=== PATIENT | female | born 1935 | race Caucasian/White ===

== ENCOUNTER → 2016-08-12 09:17 | Outpatient (CLI) | payer MEDICARE, BC | END | disposition home or self-care (01) | LOC: D.NM 08-09 09:30 | DX: M54.5 Low back pain (principal) ==

== ENCOUNTER 2017-01-22 16:34 | Observation (INO) | payer MEDICARE, BC ==
--- NOTE | ~2017-01-22 | HEMODYNAMI ---
PATIENT:SOLOMON HINOJOSA MEDICAL RECORD: [id number] : 31 LOCATION:[address] [id number] ADMISSION DATE: 01/22/17 Generatedon:01/23/201713:08 Patient name: SOLOMON HINOJOSA Patient #: [id number] SSN: : Date of study: 01/23/2017 Page: Of Hemodynamic Procedure Report Patient Data Patient Demographics Procedure consent was obtained First Name: SOLOMON Gender: Female Last Name: ASHISH : 1935 [facility] Initial: DERIC Age: 81 year(s) Patient #: [id number] Race: Unknown Additional ID: [id number] Contact details Address: [address] [place] [address] [address] State: [place] City: [place] Zip code: [address] Admission Admission Data Admission Date: 01/22/2017 Admission Time: 18:38 Room #: D.2123 Lab Results Lab Result Date: 01/23/2017 Lab Result Time: 0:00 Biochemistry Name Units Result Min Max BUN mg/dl 9 --(*---)-- 7 18 Creatinine mg/dl 0.5 -*(----)-- 0.6 1.3 CBC Name Units Result Min Max Hemoglobin g/dl 12.6 -*(----)-- 13.5 17.5 Procedure Procedure Types Cath Procedure Diagnostic Procedure [facility] w/Coronaries PCI Procedure Coronary Stent Initial Miscellaneous Procedures Moderate Sedation up to 15 minutes Procedure Description Procedure Date Procedure Date: 01/23/2017 Procedure Start Time: 12:49 Procedure End Time: 13:06 Procedure Staff Name Function Demetrius Durham MD Performing Physician Ananya Villarreal RT Scrub Joaquin Cortez RN Nurse Randall Jimenez RT Monitor Procedure Data Cath Procedure Fluoroscopy Diagnostic fluoroscopy Total fluoroscopy Time: 2.9 time: 2.9 min min Diagnostic fluoroscopy Total fluoroscopy dose: 246 dose: 246 mGy mGy Contrast Material Contrast Material Type Amount (ml) Isovue 300 74 Entry Location Entry Primary Successful Side Size Upsize Upsize Entry Closure Succes sful Closure Location (Fr) 1 (Fr) 2 (Fr) Remarks Device Remarks Femoral Right 5 Fr 6 Fr Exoseal artery Short Estimated blood loss: 10 ml Diagnostic catheters Device Type Used For End Catheter Placement Cordis 5Fr Pigtail Procedure Catheter (MP) Cordis 5Fr JL 4.0 Procedure Catheter (MP) Cordis 5Fr 3DRC Catheter Procedure (MP) Procedure Complications No complications Procedure Medications Medication Administration Route Dosage 0.9% NaCl I.V. 100 ml/hr Oxygen NC 2 l/min Heparin Flush Bag added to field 2 bags (1000units/500ml NS) Lidocaine 2% added to field 20 Versed I.V. 0.5 mg Fentanyl I.V. 25 mcg Heparin Bolus I.V. 4000 units Integrilin (Bolus I.V. 5.6 ml 2mg/ml) Integrilin (Bolus wasted 4.4 ml 2mg/ml) Hemodynamics Rest HGB: 12.6 (g/dl) Heart Rate: 70 (bpm) Snapshots Pre Cath Intra NCS Post Cath Vital Signs Time Heart Resp SPO2 etCO2 NIBP Rhythm Pain Sedation Rate (ipm) (%) (mmHg) (mmHg) Status Level (bpm) 12:32:13 70 18 98 0 124/65(98) NSR 0 (11) 10(A) , No pain 12:36:53 70 16 97 0 124/64(98) NSR 0 (11) 10(A) , No pain 12:41:34 70 14 96 0 122/64(94) NSR 0 (11) 10(A) , No pain 12:46:17 70 14 96 0 127/64(99) NSR 0 (11) 10(A) , No pain 12:50:59 70 16 97 0 121/61(94) NSR 0 (11) 9(A) , No pain 12:55:42 75 15 97 0 124/60(90) NSR 0 (11) 9(A) , No pain 13:00:23 73 19 95 0 119/58(91) NSR 0 (11) 10(A) , No pain 13:05:03 72 9 97 0 120/57(95) NSR 0 (11) 10(A) , No pain Medications Time Medication Route Dose Verified Delivered Reason Notes Effectiveness by by 12:28:30 0.9% NaCl I.V. 100 Joaquin Joaquin Per physician ml/hr iDego Cortez RN RN 12:28:49 Oxygen NC 2 Joaquin Joaquin Per physician l/min Diego Cortez RN RN 12:29:07 Heparin Flush added 2 Joaquin Joaquin used for Bag to bags Diego Cortez procedure (1000units/500ml field RN RN NS) 12:29:23 Lidocaine 2% added 20ml Joaquin Joaquin for local to vial Diego Cortez anesthetic field RN RN 12:45:16 Versed I.V. 0.5 Joaquin Joaquin for sedation mg Diego Cortez RN RN 12:50:43 Fentanyl I.V. 25 Joaquin Joaquin for sedation mcg Diego Cortez RN RN 12:58:21 Heparin Bolus I.V. 4000 Joaquin Joaquin for units Diego Cortez anticoagulation RN RN 12:58:48 Integrilin I.V. 5.6 Joaquin Joaquin for (Bolus 2mg/ml) ml Diego Cortez antiplatelet RN RN therapy 13:02:13 Integrilin wasted 4.4 Joaquin Joaquin to sharp's (Bolus 2mg/ml) ml Diego Cortez RN materials management manager Log Time Note 12:03:40 Randall Jimenez RT(R) sent for patient. Start room use. 12:03:42 Time tracking: Regular hours 12:03:47 Plan of Care:Hemodynamics will remain stable., Cardiac rhythm will remain stable., Comfort level will be maintained., Respiratory function will remain adequate., Patient/ family verbilizes understanding of procedure., Procedure tolerated without complication., Recovers from procedure without complications.. 12:04:54 H&P Date Dictated: 01/22/2017 Within 30 days and on chart.. 12:05:39 Lab Result : BUN 9 mg/dl 12:05:39 Lab Result : Hemoglobin 12.6 g/dl 12:05:39 Lab Result : Creatinine 0.5 mg/dl 12:05:44 Lab results completed and on chart. 12:19:26 Patient received from Med II to CCL 1 Alert and oriented. Tansferred to table in Supine position. 12:19:28 Warm blankets applied, and albino hugger turned on for patient comfort. 12:19:28 Correct patient and procedure confirmed by team. 12:19:30 Signed procedure consent form obtained from patient. 12:19:32 ECG and BP/O2 sat monitors applied to patient. 12:28:30 0.9% NaCl 100 ml/hr I.V. was administered by Joaquin Cortez RN; Per physician; 12:28:49 Oxygen 2 l/min NC was administered by Joaquin Cortez RN; Per physician; 12:29:07 Heparin Flush Bag (1000units/500ml NS) 2 bags added to field was administered by Joaquin Cortez RN; used for procedure; 12::23 Lidocaine 2% 20ml vial added to field was administered by Joaquin Cortez RN; for local anesthetic; 12:31:22 Vital chart was started 12:34:03 Baseline sample Acquired. 12:34:09 Rhythm: sinus rhythm 12:34:10 Full Disclosure recording started 12:34:11 Pre-procedure instructions explained to patient. 12:34:11 Pre-op teaching completed and patient verbalized understanding. 12:34:16 Family in patients room. 12:34:18 Patient NPO since Midnight. 12:34:19 Is the patient allergic to Iodine/contrast media? No. 12:34:21 Is patient on blood thinner?No 12:34:24 Patient diabetic? No. 12:34:26 Patient not . Patient is over age 55. 12:34:28 Previous problem with sedation/anesthesia? No ? 12:34:29 Snore? Yes 12:34:30 Sleep apnea? No 12:34:31 Deviated septum? No 12:34:32 Opens mouth fully? Yes 12:34:33 Sticks out tongue? Yes 12:34:49 Airway obstruction? No ? 12:34:54 Dentures? Yes OUT 12:34:58 Pre procedure: right dorsailis pedis pulse 1+ Palpable, but thready & weak; easily obliterated 12:35:02 Patient pain scale 0/10 ?. 12:35:08 IV patent on arrival in right wrist with 0.9% NaCl at [facility]. 12:35:25 Right groin area was prepped with chlora-prep and draped in sterile fashion 12:35:26 Alarms reviewed by R. N. 12:35:26 Sharps counted by scrub and verified by R.N. 12:36:56 Use device set Femoral Dx 12:36:59 Tegaderm 4 x 4 opened to sterile field. 12:37:00 Acist Hand Control opened to sterile field. 12:37:01 Acist Manifold opened to sterile field. 12:37:02 Acist Syringe opened to sterile field. 12:37:02 Bag Decanter opened to sterile field. 12:37:02 Medline Cath Pack opened to sterile field. 12:37:03 Terumo 5Fr [place] Sheath opened to sterile field. 12:37:03 St Madi 260cm J .035 wire opened to sterile field. 12:37:04 Diagnostic Infinity 5Fr Multipack catheter opened to sterile field. 12:37:23 Cook 18G 7cm Percutaneous Entry needle opened to sterile field. 12:40:24 Zero performed for pressure channel P1 12:41:02 Zero performed for pressure channel P1 12:44:21 --------ALL STOP TIME OUT------ 12:44:22 Final Timeout: patient, procedure, and site verified with staff and physician. All members of the team are in agreement. 12:44:25 Right groin site verified by team. 12:44:28 Physical assessment completed. ASA score P 2 - A patient with mild systemic disease as per Demetrius Durham MD. 12:44:32 Sedation plan: IV Moderate Sedation Versed, Fentanyl 12:45:16 Versed 0.5 mg I.V. was administered by Joaquin Cortez RN; for sedation; 12:49:38 Procedure started. 12:49:41 Local anesthetic to right femoral artery with Lidocaine 2% by Demetrius Durham MD.INITIAL ACCESS ONLY 12:50:40 A 5 Fr sheath was inserted into the Right Femoral artery 12:50:43 Fentanyl 25 mcg I.V. was administered by Joaquin Cortez RN; for sedation; 12:51:08 A Cordis 5Fr Pigtail Catheter (MP) was advanced over the wire and used for Procedure. 12:51:44 LV angiography performed. 12:51:45 LV gram done using BARBOUR 12:51:51 EF : 60 % 12:51:54 Injector settings: Ml/sec: 10, Volume: 20, 12:51:57 Catheter removed. 12:52:06 A Cordis 5Fr JL 4.0 Catheter (MP) was advanced over the wire and used for Procedure. 12:52:53 LCA angiography performed. 12:53:34 Catheter exchanged over wire. 12:53:41 A Cordis 5Fr 3DRC Catheter (MP) was advanced over the wire and used for Procedure. 12:54:03 Terumo 6Fr [place] Sheath opened to sterile field. 12:54:04 Merit BasixCompak Inflation Kit opened to sterile field. 12:54:04 [place] Sci PT Graphix J 300cm 0.014 guide wire opened to sterile field. 12:54:33 RCA angiography performed. 12:54:36 Catheter exchanged over wire. 12:54:45 Cordis 6FR XB 3.5 SH guide catheter opened to sterile field. 12:54:59 Sheath upsized to a 6 Fr Short. 12:55:09 Study PCI Site: [place] LMCA has 80% stenosis. 12:55:12 ACC Pre-intervention JEFRY Flow is 3. 12:55:19 6 Fr XB 3.5 SH guide catheter was inserted over the wire 12:58:21 Heparin Bolus 4000 units I.V. was administered by Joaquin Cortez RN; for anticoagulation; 12:58:22 Whisper wire advanced. 12:58:38 Wire advanced across lesion. 12:58:48 Integrilin (Bolus 2mg/ml) 5.6 ml I.V. was administered by Joaquin Cortez RN; for antiplatelet therapy; 12:59:43 Inflation Number: 1 A Christian OTW 3.0 x 08 stent was prepped and advanced across the LMCA. The stent was deployed at 17 GIOVANNY for 0:10 (min:sec). 12:59:59 ACC Post-intervention JEFRY Flow is 3. 13:00:01 Stent catheter was removed intact over wire. 13:00:01 Wire removed. 13:00:02 Guide catheter removed. 13:00:21 Cordis 6Fr Exoseal opened to sterile field. 13:00:34 Sheath removed intact; hemostasis achieved with Exoseal to the Right Femoral artery. 13:00:36 Procedure ended.(Physican Out) 13:01:46 Fluoroscopy time 02.90 minutes. 13:01:49 Flurop Dose total: 246 13:01:49 Fluoroscopy dose: 246 mGy 13:01:53 Contrast amount:Isovue 300 74ml. 13:01:55 Sharps counted by scrub and verified by R.N. 13:01:56 Insertion/operative site no bleeding no hematoma. 13:01:58 Post-op/insertion site Right Femoral artery dressed using a 4 x 4 and Tegaderm. 13:02:00 Post Procedure Pulses reassessed and unchanged 13:02:02 Post-procedure physical assessment completed. ASA score P 2 - A patient with mild systemic disease as per Demetrius Durham MD. 13:02:04 Post procedure rhythm: unchanged. 13:02:08 Estimated blood loss: 10 ml 13:02:09 Post procedure instruction explained to patient.Patient verbalizes understanding. 13:02:10 Patient needs reinforcement of post procedure teaching. 13:02:13 Integrilin (Bolus 2mg/ml) 4.4 ml wasted was administered by Joaquin Cortez RN; to tram'perlita; 13:02:18 Procedure type changed to Cath procedure, Diagnostic procedure, LHC, LHC w/Coronaries, PCI procedure, Coronary Stent Initial, Miscellaneous Procedures, Moderate Sedation up to 15 minutes 13:02:22 Procedure Complication : No complications 13:03:22 Procedure and supply charges have been captured, reviewed, submitted and are correct. 13:06:37 Vital chart was stopped 13:06:38 See physician's report for complete and final results. 13:06:42 Report given to PCU. 13:06:46 Patient transfered to PCU with Bed. 13:06:49 Procedure ended. 13:06:49 Full Disclosure recording stopped 13:07:53 End room use (Document Last) Intervention Summary Intervention Notes Time ActionType Lesion and Equipment Action# Pressure Duration Attributes Used 12:59:43 Place stent LMCA Christian OTW 1 17 00:10 3.0 x 08 stent Device Usage Item Name Manufacture Quantity Catalog Number Hospital Part Current Min imal Lot# / Charge Number Stock Stock Serial# Code Tegaderm 4 x 3M 1 [id number] 198073 475893 378867 5 4 Acist Hand Acist 1 61059 609856 424452 854223 5 Control Medical Systems Inc Acist Acist 1 96201 645042 274458 799918 5 Manifold Medical Systems Inc Acist Acist 1 79106 564110 804752 065771 20 Syringe Medical Systems Inc Bag Decanter Microtek 1 2001S 787247 38407 149412 5 Medical Inc. Medline Cath Cardinal 1 [id number] 760103 84257 180601 5 Pack Health Terumo 5Fr Terumo 1 [id number] 977723 040039 803057 [address] St Madi 1 227956 020124 937623 032263 30 260cm J .035 wire Diagnostic Cardinal 1 [id number] 537053 11606 259557 30 Infinity 5Fr Health Multipack catheter Cook 18G 7cm [facility] 1 [id number] 596089 94379 928035 5 Percutaneous Entry needle Cordis 5Fr Cardinal 1 796338 5 Pigtail Health Catheter (MP) Cordis 5Fr Cardinal 1 889249 5 JL 4.0 Health Catheter (MP) Cordis 5Fr Cardinal 1 728026 5 3DRC Health Catheter (MP) Terumo 6Fr Terumo 1 BKS293 746227 517409 647851 40 [place] Sheath [facility] 1 TC5527 948942 795957 587220 15 BasixCompak Medical Inflation Kit [place] Sci [place] 1 [id number] 928828 149606 807106 5 PT Graphix J Scientific 300cm 0.014 guide wire Cordis 6FR Cardinal 1 [id number] 955017 552932 837690 2 XB 3.5 SH Health guide catheter [place] OTW 3.0 Medtronic 1 [id number] 049656 0365745 318865 5 [id number] x 08 stent Cordis 6Fr Cardinal 1 EX600 397207 032435 197599 10 [facility] Health Signature Audit Jeddo Stage Time Signature Unsigned Intra-Procedure 01/23/2017 Randall Jimenez 1:08:16 PM RT(R) Signatures Monitor : Randall Jimenez RT Signature : Date : Time : [facility] [address] [place], [place] [address]
[2017-01-22 17:08] LABS: BASOPHILS 0.3 % (0-2); EOSINOPHILS 0.9 % (0-7); HEMATOCRIT 36.4 % (36.0-48.0); HEMOGLOBIN 12.6 g/dL (12-16); IMMATURE GRANULOCYTES 0.3 % (0-5); LYMPHOCYTES 10.9 % (15-50); MCH 31.4 pg (26.0-34.0); MCHC 34.6 g/dL (31.0-37.0); MCV 90.8 fL (80.0-100.0); MEAN PLATELET VOLUME 9.8 fL (7.4-10.4); MONOCYTES 13.6 % (2-11); RBC 4.01 10x6/uL (4.00-5.40); RDW 12.1 % (11.5-14.5)
[2017-01-22 17:09] LABS: PLATELET COUNT 196 10x3/uL (130-400)
[2017-01-22 17:32] LABS: ALKALINE PHOSPHATASE 50 U/L (46-116); ALT (SGPT) 15 U/L (10-68); BILIRUBIN - TOTAL 0.19 mg/dL (0.2-1.3); CALC OSMOLALITY 269 mosm/kg (275-300); CALCIUM 9.2 mg/dL (8.5-10.1); CARBON DIOXIDE 27.1 mmol/L (21.0-32.0); CHLORIDE - SERUM 99 mmol/L (98-107); CREATININE - SERUM 0.5 mg/dL (0.6-1.3); GLUCOSE 108 mg/dL (74-106); POTASSIUM - SERUM 3.5 mmol/L (3.5-5.1); PROTEIN - SERUM 6.7 g/dL (6.4-8.2); SODIUM 135 mmol/L (136-145); UREA NITROGEN 9 mg/dL (7-18); eGFR NON AFRICAN AMERICAN > 90 mL/min (90-120)
[2017-01-22 17:43] LABS: CHOLESTEROL, TOTAL 155 mg/dL (0-200); CKMB 0.2 U/L (0.0-3.6); CREATINE KINASE 36 UL (21-215); HDL CHOLESTEROL 51 mg/dL (32-96); LDL CHOLESTEROL 91 mg/dL (0-100); LDL-HDL RATIO 1.8 ratio (1.5-3.5); TRIGLYCERIDE 66 mg/dL (30-200)
[2017-01-22 17:44] LABS: TROPONIN-I < 0.017 ng/mL (0.000-0.060)
[2017-01-22 18:40] LABS: CREATINE KINASE 31 UL (21-215)
[2017-01-22 18:54] LABS: TROPONIN-I < 0.017 ng/mL (0.000-0.060)
--- NOTE | 2017-01-22 19:23 | NUR ---
ARRIVED TO FLOOR VIA WHEELCHAIR ACCOMPANIED BY HOSPITAL STAFF AND FAMILY. ORIENTED TO FLOOR AND PLACED ON TELEMETRY. CALL LIGHT IN REACH. PLAN OF CARE DISCUSSED. WILL CONTINUE TO MONITOR. SEE NURSE ASSESSMENT.
[2017-01-22 20:00] VITALS: BP 134/62
[2017-01-22] MEDS ORDERED: UNISOM SLEEP AI25 MG PO (21:16)
--- NOTE | 2017-01-22 21:18 | NUR ---
DR. TIRADO PAGED FOR SLEEP AID, AWAITING CALL BACK.
[2017-01-22] MEDS ORDERED: NORVASC10 MG PO (21:19)
[2017-01-22] MEDS ORDERED: TOPROL XL25 MG PO (21:19)
[2017-01-22] MEDS ORDERED: FLUTICASONE PRO16 GM NASAL (21:20)
[2017-01-22] MEDS ORDERED: CELEXA40 MG PO (21:20)
[2017-01-22] MEDS ORDERED: HYDRALAZINE HCL25 MG PO (21:21)
[2017-01-22] MEDS ORDERED: NEXIUM40 MG PO (21:21)
[2017-01-22 23:09] VITALS: BP 134/62; BMI 25.1
[2017-01-23] VITALS: BP 173/65
--- NOTE | 2017-01-23 00:30 | NUR ---
LAB IN ROOM TO OBTAIN CARDIAC ENZYMES
--- NOTE | 2017-01-23 01:03 | NUR ---
MORPHINE 4MG IVP FOR CHEST PAIN RADIATING INTO LEFT ARM AND SHOULDER. DESCRIBES PAIN A THROBBING SENSATION, 10:10. CALL LIGHT IN REACH. WILL CONTINUE TO MONITOR.
[2017-01-23 01:15] LABS: CKMB 0.1 U/L (0.0-3.6); CREATINE KINASE 34 UL (21-215); TROPONIN-I < 0.017 ng/mL (0.000-0.060)
[2017-01-23 04:00] VITALS: BP 145/67
[2017-01-23 07:21] LABS: CKMB 0.2 U/L (0.0-3.6); CREATINE KINASE 32 UL (21-215)
[2017-01-23 07:25] LABS: TROPONIN-I < 0.017 ng/mL (0.000-0.060)
--- NOTE | 2017-01-23 07:37 | NUR ---
PT SITTING UP IN BED DENIES NEEDS AT THIS TIME. WILL CONT TO MONITOR
[2017-01-23 08:34] VITALS: BP 163/78
[2017-01-23 12:16] LABS: BASOPHILS 0.3 % (0-2); CALC OSMOLALITY 267 mosm/kg (275-300); CALCIUM 9.1 mg/dL (8.5-10.1); CARBON DIOXIDE 25.2 mmol/L (21.0-32.0); CHLORIDE - SERUM 99 mmol/L (98-107); CREATININE - SERUM 0.5 mg/dL (0.6-1.3); EOSINOPHILS 0.6 % (0-7); GLUCOSE 106 mg/dL (74-106); HEMOGLOBIN 12.1 g/dL (12-16); IMMATURE GRANULOCYTES 0.1 % (0-5); LYMPHOCYTES 11.7 % (15-50); MCH 31.1 pg (26.0-34.0); MCHC 33.6 g/dL (31.0-37.0); MCV 92.5 fL (80.0-100.0); MEAN PLATELET VOLUME 10.5 fL (7.4-10.4); MONOCYTES 15.8 % (2-11); NEUTROPHILS 71.5 % (40-80); PLATELET COUNT 198 10x3/uL (130-400); POTASSIUM - SERUM 3.2 mmol/L (3.5-5.1); RBC 3.89 10x6/uL (4.00-5.40); RDW 12.3 % (11.5-14.5); SODIUM 135 mmol/L (136-145); UREA NITROGEN 8 mg/dL (7-18); eGFR NON AFRICAN AMERICAN > 90 mL/min (90-120)
[2017-01-23 12:23] VITALS: BP 136/72
[2017-01-23 12:49] VITALS: BMI 25.1
--- NOTE | 2017-01-23 13:13 | NUR ---
RECEIVED REPORT FROM CINDER BLOCK MAKER, PT RECEIVED ONE STENT IN PROCEDURE. DR COLON IS OK WITH PT GOING HOME AT 1730. CALLED DR EWING OFFICE TO SEE IF HE HAD A CHANGE TO LOOK AT HER SHOULDER XRAY AND IF IT WOULD BE OK FOR HER TO GO HOME TODAY... THEY DIDNT ANSWER, LEFT MESSAGE FOR THEM TO CALL ME BACK
--- NOTE | 2017-01-23 13:24 | NUR ---
PT BACK TO ROOM VS ARE WNL. R GROIN SITE IS WNL. PT STILL LETHARGIC BUT AWAKE AND ALERT. DAUGHTER AT BEDSIDE WILL CONT TO MONITOR
--- NOTE | 2017-01-23 14:21 | NUR ---
PT STILL LAYING FLAT VS ARE STILL UNCHANGED. NO S/S DISTRESS R GROIN SITE IS STILL WNL. WILL CONT TO MONITOR
[2017-01-23] MEDS ORDERED: PLAVIX75 MG PO (14:54)
--- NOTE | 2017-01-23 16:45 | NUR ---
PT LAYING FLAT IN BED R GROIN SITE IS STILL WNL. VS ARE WNL. PT STILL COMPLAINING OF LEFT SHOULDER PAIN. DR LAM SAID TO DC PT HOME. DID NOT PRESCRIBE PT ANY PAIN MEDICATION TO TAKE AT HOME FOR SHOULDER PAIN LIKE PT REQUESTED. TRIED CALLING OFFICE MULTIPLE TIMES, NO ANSWER. PT DAUGHTER WENT ACROSS THE STREET TO OFFICE TO ASK FOR SOME MEDICATION FOR HER MOTHER.
--- NOTE | 2017-01-23 18:23 | NUR ---
PT WAS WHEELED OUT TO FRONT ENTRACE.
--- NOTE | 2017-01-24 16:42 | OP ---
PATIENT NAME: SOLOMON HINOJOSA MEDICAL RECORD: [id number] :31 LOCATION:D.M2 D.2123 ADMISSION DATE:01/22/17 SURGEON: SUNITHA COLON MD DATE OF OPERATION: 01/23/2017 PROCEDURES: 1. PTCA stent to left main. 2. Left heart catheterization. 3. Selective coronary angiography. 4. Left ventriculogram. INDICATION: Angina and coronary artery disease. PROCEDURE IN DETAIL: After informed consent was obtained and after a detailed explanation of the risks, benefits as well as alternative therapies, the patient elected to proceed with angiogram and angioplasty. The right femoral area was prepped and draped in normal sterile fashion. The right femoral artery was cannulated via modified Seldinger technique with placement of 6-Romanian sheath. All catheters exchanged through this sheath. FINDINGS: The left ventriculogram was performed in standard 30-degree BARBOUR view, reveals good cardiac wall motion throughout all segments. Overall ejection fraction estimated 60%. SELECTIVE CORONARY ANGIOGRAPHY: 1. Left main has 80% stenosis in the proximal aspect. 2. Left anterior descending has moderate irregularities, but no flow-limiting stenosis. 3. The left circumflex has moderate irregularities, but no flow-limiting stenosis. 4. Right coronary has moderate irregularities, but no flow-limiting stenosis. PTCA STENT OF LEFT MAIN: The left main was addressed with a 3.0 x 8 mm [place] stent taken to 17 atmospheres. Result was 0% residual stenosis. OVERALL IMPRESSION: Successful percutaneous transluminal coronary angioplasty stent of the left main going from 80% initial stenosis to 0% residual. TRANSINT:[id number] Voice Confirmation ID: [id number] DOCUMENT ID: [id number] SUNITHA COLON MD at 1642 CC: TOMAS LAM DO [id number] DICTATION DATE: 01/23/17 1304 JOB SETTER: 01/23/17 1420 DIS IN 01/23/17 [facility] [address] [place] [id number]
--- NOTE | 2017-01-24 16:42 | CN ---
PATIENT NAME:SOLOMON SANDERS MEDICAL RECORD: [id number] : 31 LOCATION:D. D.2123 ADMIT DATE: 01/22/17 ACCOUNT: [id number] CONSULTING PHYSICIAN: SUNITHA COLON MD REFERRING PHYSICIAN: TOMAS LAM DO DATE OF CONSULTATION: 01/23/2017 DIAGNOSES: 1. Angina. 2. Sick sinus syndrome. 3. Status post pacemaker. 4. Hypertension. HISTORY OF PRESENT ILLNESS: Mrs. Sanders has no history of ischemic heart disease. She does have a history of dysrhythmia, status post permanent pacemaker. She has history of hypertension. She began having chest pain 2 days ago. It has rapidly escalated. She is having multiple episodes of chest pain with radiation to her jaw and her left arm very compatible with angina. Her troponin is normal. Her EKG is with nonspecific ST-T abnormalities. PHYSICAL EXAMINATION: GENERAL APPEARANCE: Well-nourished, well-developed, appears stated age. Level of distress, comfortable. PSYCHIATRIC: Mental status, alert, normal affect. Orientation, oriented to time, place and person. EYES: Lids and conjunctiva, noninjected. No discharge, no pallor. ENT: Lips, teeth, gums, normal dentition. Oropharynx, no cyanosis, no pallor. NECK: Carotid arteries, bilateral normal upstroke, no bruits, no thrills. JUGULAR VEINS: No jugular venous pressure or distention. CERVICAL LYMPH NODES: Nontender, nonenlarged. THYROID: Not enlarged. Nontender. No nodules. LUNGS: Respiratory effort, unlabored. CHEST: Normal curvature. No thoracic deformity. No chest wall tenderness. Percussion, resonant. Auscultation, clear. No wheezes, no rales, no rhonchi. CARDIOVASCULAR: Precordial exam, nondisplaced. No heaves or pericardial thrills. Rate and rhythm, regular. Heart sounds, normal S1, normal S2. No S3, no gallop, no rub. Systolic murmur, not heard. Diastolic murmur, not heard. EXTREMITIES: No cyanosis, no edema. Peripheral pulses, full and equal in all extremities, except as noted. No bruits appreciated. ABDOMEN: Soft, nondistended. Normal aorta. No bruit. Nontender. No masses. Liver, nontender, no hepatomegaly. Spleen, nontender, no splenomegaly. MUSCULOSKELETAL: No joint tenderness. No joint swelling. No erythema. NEUROLOGICAL: Normal gait, normal strength, normal tone. SKIN: Warm and dry. REVIEW OF SYSTEMS: The patient reports easy bruising but reports no swollen glands. The patient reports no fever, no night sweats, no significant weight gain, no significant weight loss. No significant exercise tolerance. The patient reports no dry eyes, no irritation, no vision change. Patient reports no difficulty hearing and no ear pain. Patient reports no frequent nose bleeds or nose and sinus problems. Patient reports on arm pain on exertion. No shortness of breath while lying down. No history of heart murmur. Patient reports no cough, no wheezing or coughing up blood. Patient reports no abdominal pain, no vomiting. Normal appetite. No diarrhea and not vomiting blood. No nausea and no constipation. Patient reports no incontinence. No CONSULT REPORT [id number] SOLOMON SANDERS difficulty urinating. No hematuria. No increased frequency. Patient reports no muscle aches. No weakness, no arthralgias, no back pain. No swelling of the extremities. Patient reports no abnormal mole, no jaundice, no rashes. Reports no loss of consciousness. No weakness and no numbness. No seizures, dizziness, or headaches. The patient reports no depression, no sleep disturbance, feeling safe in a relationship and no alcohol abuse. Patient reports on fatigue. Reports no runny nose or sinus pressure. No itching, no hives, and no frequent sneezing. OVERALL IMPRESSION: Chest pain compatible with angina in a rapidly progressive unstable fashion. We will proceed with coronary angiography. Further care depends upon findings of the angiography. TRANSINT:[id number] Voice Confirmation ID: [id number] DOCUMENT ID: [id number] SUNITHA COLON MD at 1642 CC: [id number] DICTATION DATE: 01/23/17 0842 CONTROLS DESIGNER: 01/23/17 1117 DIS IN 01/23/17 [place] [id number] [place] [id number]
== END 2017-01-23 18:24 | disposition home or self-care (01) ==
LOC: D.ER 16:34 → D.M2 18:38 → OBSVTIME 18:38 → D.M2 01-23 18:24
PROVIDERS: Emergency Medicine; Internal Medicine Interventional Cardiology; ADMIT Family Medicine
DX: I25.119 Atherosclerotic heart disease of native coronary artery with unspecified angina pectoris (principal); I10 Essential (primary) hypertension; K21.9 Gastro-esophageal reflux disease without esophagitis; Z87.891 Personal history of nicotine dependence; Z95.0 Presence of cardiac pacemaker
CPT/HCPCS: 93458; C9600